=== PATIENT | male | born 1995 | race Hispanic/Latino ===

== ENCOUNTER 2025-08-08 01:07 | Emergency (ER) | payer OTHER ==
[2025-08-08] MEDS ORDERED: NA CHLORIDE 0.9% 1,000 ML ONE (01:45)
[2025-08-08] MEDS ORDERED: ONDANSETRON 4 MG/2 ML VIAL ONE (01:45)
[2025-08-08] MEDS ORDERED: HYDROMORPHONE HCL 0.5 MG/0.5 ML INJ ONE ×2 (01:45→03:38)
[2025-08-08 02:20] LABS: Sqamous Epithelial <5 /HPF (None Seen); Urine Culture Reflex Order NOT NEEDED; Urine Microscopic Reflex YN ORDER UMIC
[2025-08-08 02:36] LABS: Absolute Lymphocytes (CBC) 1.5 K/uL (0.7-4.9); Hematocrit 45.5 % (39.6-49.0); Hemoglobin 15.5 g/dL (13.6-17.9); MCH 29.9 pg (27.0-35.0); MCHC 34.1 g/dL (32.0-36.0); MCV 87.7 fL (80-100); MPV 7.2 fL (7.6-11.3); Nucleated RBC Absolute Count 0.0 (0-0); Nucleated Red Blood Cells % 0.1 % (0-0); RBC Red Blood Cell Count 5.20 M/uL (4.33-5.43); White Blood Count 11.50 thou/uL (4.3-10.9)
[2025-08-08 02:39] LABS: ALT/SGPT 59.0 U/L (16-61); AST/SGOT 39.0 U/L (15-37); Albumin 3.7 g/dL (3.4-5.0); Albumin/Globulin Ratio 0.9 (1.1-1.8); Alkaline Phosphatase 118.0 U/L (45-117); Anion Gap 10.0 mEq/L (5.0-15.0); BUN Blood Urea Nitrogen 16.0 mg/dL (7-18); Globulin 4.3 g/dL (2.3-3.5); Glucose Level 133.0 mg/dL (74-106); Lipase 39.0 U/L (13-75); Potassium 4.0 mEq/L (3.5-5.1)
--- NOTE | 2025-08-08 04:33 | RAD REPORT ---
Procedure description: CT ABDOMEN PELVIS WITH IV CONTRAST CLINICAL INDICATION: ABD PAIN TECHNIQUE: Axial imaging obtained through the abdomen and pelvis. Sagittal and coronal reconstruction s obtained. CONTRAST: Nonionic IV contrast. See hospital information system for dose COMPARISON: Gallbladder ultrasound same date FINDINGS: CT abdomen/pelvis: The lung bases are clear consolidation. No pleural or pericardial effusions and th e heart size is normal. The liver is fatty infiltrated. The gallbladder, bile ducts, portal vein, pancreas, spleen, adrenal g lands and left kidney are normal. The right kidney demonstrates surrounding inflammation. There is slight dilatation of the right renal collecting system.. The ureter is not distended. There is a small calculus in the bladder measuring approximately 2 mm. The aorta is normal size and appearance. The appendix is normal. No bowel distention or inflammation. No constipation. The prostate gland is not significantly enlarged. No free fluid or free air. IMPRESSION: 1: 2 mm calculus in the bladder. This is near the right ureterovesical junction. 2: Mild right-sided renal collecting system prominence without significant hydronephrosis. 3: Inflammatory stranding around the right kidney may be related to obstruction but any pyelonephriti s is not excluded. 4: Fatty infiltration of the liver. RADIATION DOSE REDUCTION: This exam was performed according to our departmental dose-optimization pro gram which includes automated exposure control, adjustment of the mA and/or kV according to patient size and/or use of iterative reconstruction technique. Electronically signed by: Elijah Wyman MD 08/08/2025 03:45 AM CDT Due to temporary technical issues with the PACS/Obvious reporting system, reports are being jonathan d by the in-house radiologist without review as a courtesy to ensure prompt reporting the interpreting radiologist is fully responsible for the content of the report. Transcribed Date/Time: 08/08/2025 4:32 AM
[2025-08-08] MEDS ORDERED: KETOROLAC 30 MG/ML INJ ONE (04:46)
[2025-08-08] MEDS ORDERED: MORPHINE 4 MG/ML SYR ONE (04:47)
--- NOTE | 2025-08-08 05:04 | ER ---
Nurse's Notes [facility] Name: Murphy Julian Age: 29 yrs Sex: Male : 1995 Arrival Date: 08/08/2025 Time: 01:07 Bed 15 Private MD: Diagnosis: Calculus of ureter Presentation: 08/08 01:23 Chief complaint: Patient states: ABD PAIN, N/V STARTED AROUND 2230. VOMITED AT LEAST jj7 10X. Coronavirus screen: At this time, the client does not indicate any symptoms associated with coronavirus-19. Ebola Screen: No symptoms or risks identified at this time. Initial Sepsis Screen: Does the patient meet any 2 criteria? No. Patient's initial sepsis screen is negative. Does the patient have a suspected source of infection? No. Patient's initial sepsis screen is negative. Risk Assessment: Do you want to hurt yourself or someone else? Patient reports no desire to harm self or others. Onset of symptoms was August 07, 2025 at 22:30. 01:23 Method Of Arrival: Ambulatory [facility] 01:23 Acuity: PATITO 3 jj7 Triage Assessment: 01:23 General: Appears in no apparent distress. uncomfortable, Behavior is calm, cooperative, jj7 appropriate for age. Pain: Complains of pain in right upper quadrant and right lower quadrant. Pain: Pain currently is 9 out of 10 on a pain scale. GI: Reports nausea, vomiting. Historical: - Allergies: 01:30 No Known Allergies; jj7 - PMHx: 01:30 None; jj7 - PSHx: 01:30 None; jj7 - Immunization history:: Adult Immunizations not up to date. - Infectious Disease History:: Denies. - Social history:: Smoking status: Patient denies any tobacco usage or history of. Patient/guardian denies using alcohol, street drugs, IV drugs. Screenin:05 [facility] ED Fall Risk Assessment (Adult) History of falling in the last 3 months, vc1 including since admission No falls in past 3 months (0 pts) Confusion or Disorientation No (0 pts) Intoxicated or Sedated No (0 pts) Impaired Gait No (0 pts) Mobility Assist Device Used No (0 pt) Altered Elimination Yes (1 pt) Score/Fall Risk Level 0 - 2 = Low Risk Oriented to surroundings, Maintained a safe environment, Educated pt \T\ family on fall prevention, incl call for assistance when getting out of bed, Assessed \T\ reinforced patient's understanding of fall precautions, Hourly rounding (assess needs \T\ fall precautionary measures) done. Abuse screen: Denies threats or abuse. Nutritional screening: No deficits noted. Tuberculosis screening: No symptoms or risk factors identified. Assessment: 01:40 General: Appears in no apparent distress. uncomfortable, Behavior is calm, cooperative, cc6 appropriate for age. Pain: Complains of pain in abdomen Pain does not radiate. Pain currently is 9 out of 10 on a pain scale. Quality of pain is described as sharp. Neuro: Level of Consciousness is awake, alert, obeys commands, Oriented to person, place, time, situation. Cardiovascular: Patient's skin is warm and dry. Respiratory: Airway is patent Respiratory effort is even, unlabored, Respiratory pattern is regular, symmetrical. GI: Bowel sounds present X 4 quads. Abd is soft X 4 quads Abdomen is tender to palpation X 4 quads. : No signs and/or symptoms were reported regarding the genitourinary system. EENT: No signs and/or symptoms were reported regarding the EENT system. Derm: No signs and/or symptoms reported regarding the dermatologic system. Musculoskeletal: Circulation, motion, and sensation intact. Range of motion: intact in all extremities. 02:53 Reassessment: Patient and/or family updated on plan of care and expected duration. Pain cc6 level reassessed. Patient is alert, oriented x 3, equal unlabored respirations, skin warm/dry/pink. 04:03 Reassessment: Patient appears in no apparent distress at this time. Patient and/or cc6 family updated on plan of care and expected duration. Pain level reassessed. Patient states symptoms have improved. Vital Signs: 01:23 BP 162 / 88; Pulse 86; Resp 20; Temp 98.2; Pulse Ox 100% ; Weight 149.69 kg; Height 5 jj7 ft. 7 in. ; Pain 9/10; 02:53 BP 147 / 89; Pulse 85; Resp 18; Pulse Ox 98% on R/A; cc6 04:03 BP 160 / 91; Pulse 96; Resp 16; Pulse Ox 96% ; cc6 05:28 BP 129 / 85; Pulse 88; Resp 18; Pulse Ox 95% on R/A; cc6 01:23 Body Mass Index 51.68 (149.69 kg, 170.18 cm) jj7 01:23 Pain Scale: Adult [facility] ED Course: 01:09 Patient arrived in ED. mr 01:23 Arm band placed on right wrist. jj7 01:30 Triage completed. jj7 01:35 Jose Francisco Quiros DO is Attending Physician. tt7 01:42 Jeanne Waterman, FERNY is Primary Nurse. cc6 01:50 Inserted saline lock: 20 gauge in right antecubital area, using aseptic technique. vc1 Blood collected. Flushed with 10 mL NS. 02:05 Patient has correct armband on for positive identification. Bed in low position. Call vc1 light in reach. Provided Education on: Plan of care. Pulse ox on. NIBP on. 02:54 US Abdomen Limited In Process Unspecified. EDMS 03:15 CT Abd/Pelvis - IV Contrast Only In Process Unspecified. EDMS 05:29 No provider procedures requiring assistance completed. IV discontinued, intact, cc6 bleeding controlled, No redness/swelling at site. Pressure dressing applied. Administered Medications: 01:58 Drug: HYDROmorphone IVP 0.5 mg IVP once Route: IVP; Site: right antecubital; cc6 05:23 Follow up: Response: No adverse reaction; Pain is decreased; RASS: Alert and Calm (0) cc6 01:59 Drug: Ondansetron IVP 4 mg IVP once; over 2 minutes Route: IVP; Site: right antecubital;cc6 05:24 Follow up: Response: No adverse reaction; Nausea is decreased cc6 01:59 Drug: NS 0.9% IV 1000 ml IV at 1 bolus Per protocol; to be given as a bolus over 60 cc6 minutes Route: IV; Rate: 1 bolus; Site: right antecubital; 05:23 Follow up: Response: No adverse reaction; IV Status: Completed infusion; IV Intake: cc6 1000ml 03:53 Drug: HYDROmorphone IVP 0.5 mg IVP once Route: IVP; Site: right antecubital; vc1 04:57 Follow up: Response: No adverse reaction; Pain is unchanged, physician notified cc6 04:54 Drug: Ketorolac IVP 15 mg IVP once Route: IVP; Site: right antecubital; cc6 05:19 Follow up: Response: No adverse reaction; Pain is decreased cc6 04:54 Drug: morphine IVP or IV 4 mg IVP once over 4 mins Route: IVP; Infused Over: 4 mins; cc6 Site: right antecubital; 05:19 Follow up: Response: No adverse reaction; Pain is decreased cc6 Medication: 02:06 VIS not applicable for this client. vc1 Intake: 05:23 IV: 1000ml; Total: 1000ml. cc6 Outcome: 05:03 Discharge ordered by MD. tt7 05:30 Discharged to home ambulatory, cc6 05:30 Condition: stable 05:30 Discharge instructions given to patient, Instructed on discharge instructions, follow up and referral plans. medication usage, Demonstrated understanding of instructions, follow-up care, medications, Prescriptions given X 1, 05:30 Patient left the ED. cc6 Signatures: Dispatcher [employer] EDKS Dasia Qiu, Reg Reg mr Adriana Scales RN RN vc1 Nisha Thorne RN RN jj7 Jeanne Waterman RN RN cc6 Jose Francisco Quiros DO DO tt7
--- NOTE | 2025-08-08 05:04 | EDPHYS ---
Physician Documentation [facility] Name: Murphy Julian Age: 29 yrs Sex: Male : 1995 Arrival Date: 08/08/2025 Time: 01:07 Bed 15 Private MD: ED Physician Jose Francisco Quiros HPI: 08/08 02:24 This 29 yrs old Male presents to ER via Ambulatory with complaints of tt7 Abdominal Pain, Nausea/Vomiting. 02:24 Symptoms started about 5 hours ago, the patient reports sharp constant right upper tt7 abdominal pain with associated nausea/vomiting. He reports approximately 10 episodes of nonbloody nonbilious vomiting. Unable to tolerate oral intake. He rates the pain 8/10 in severity. No associated fever. No daily alcohol use or illicit drug use. Historical: - Allergies: 01:30 No Known Allergies; jj7 - PMHx: 01:30 None; jj7 - PSHx: 01:30 None; jj7 - Immunization history:: Adult Immunizations not up to date. - Infectious Disease History:: Denies. - Social history:: Smoking status: Patient denies any tobacco usage or history of. Patient/guardian denies using alcohol, street drugs, IV drugs. ROS: 04:02 Constitutional: negative for fever. Cardiovascular: negative for chest pain. tt7 Respiratory: negative for shortness of breath. MS/Extremity: negative for injury and deformity. Skin: negative for rash. Neuro: negative for focal weakness. 04:02 Abdomen/GI: Positive for abdominal pain, nausea and vomiting, Exam: 04:02 Constitutional: vital signs reviewed, uncomfortable appearing. Head/Face: tt7 normocephalic, atraumatic. Eyes: no conjunctival injection, anicteric sclerae. ENT: mucus membranes moist. Neck: trachea midline, no JVD, no meningismus. Chest/axilla: normal chest wall appearance and motion, nontender, no crepitus. Cardiovascular: regular rate and rhythm, no murmurs, no rubs, no lower extremity edema. Respiratory: normal respiratory effort, no accessory muscle use, lungs CTAB. Abdomen/GI: soft, nondistended, moderate right upper quadrant tenderness to palpation, no guarding or rebound, negative Poon's sign, no McBurney point tenderness. Back: normal ROM. Skin: warm, dry, intact, normal turgor, normal color, no rash. MS/ Extremity: normal ROM of extremities, no gross deformities. Neuro: alert and oriented with appropriate mental status, normal speech, follows commands, no focal neurologic deficits. Psych: appropriate mood and affect. Vital Signs: 01:23 BP 162 / 88; Pulse 86; Resp 20; Temp 98.2; Pulse Ox 100% ; Weight 149.69 kg; Height 5 jj7 ft. 7 in. ; Pain 9/10; 02:53 BP 147 / 89; Pulse 85; Resp 18; Pulse Ox 98% on R/A; cc6 04:03 BP 160 / 91; Pulse 96; Resp 16; Pulse Ox 96% ; cc6 05:28 BP 129 / 85; Pulse 88; Resp 18; Pulse Ox 95% on R/A; cc6 01:23 Body Mass Index 51.68 (149.69 kg, 170.18 cm) [facility] 01:23 Pain Scale: Adult [facility] MDM: 01:37 Medical Screening Exam initiated tt7 04:03 Differential diagnosis: Nonspecific abd pain, gastritis, cholecystitis, pancreatitis, tt7 appendicitis, diverticulitis, viral gastroenteritis, gastroenteritis, Ureterolithiasis. Data reviewed: vital signs, nurses notes, lab test result(s), radiologic studies. ED course: 29-year-old male with right sided abdominal pain, vital signs are stable, he is uncomfortable appearing with right upper quadrant tenderness on exam, standard abdominal pain workup ordered with CT imaging of the abdomen/pelvis to assess for potential ureterolithiasis and ultrasound of the right upper quadrant to assess for cholecystitis, patient given parenteral opioid and antiemetic, IV fluid bolus ordered. 04:44 Counseling: I had a detailed discussion with the patient and/or guardian regarding the tt7 historical points, exam findings, and any diagnostic results supporting the discharge/admit diagnosis, lab results, radiology results, the need for outpatient follow up, to return to the emergency department if symptoms worsen or persist or if there are any questions or concerns that arise at home. ED course: Workup demonstrates a 2 mm calculus within the bladder near the ureterovesicular junction, this likely represents a cause of patient's symptoms, appears he likely passed a stone during his visit here in the emergency department, there is some stranding around the right kidney, given the patient's lack of fever and urinalysis without evidence of infection this is likely inflammatory stranding from the obstruction and does not represent infection, I reassessed the patient and pain is improving with parenteral opioids, still pending results of right upper quadrant ultrasound to assess for cholecystitis but feel that right sided ureterolithiasis explains the patient's presentation well. 05:05 ED course: Ultrasound negative for acute gallbladder disease, after completion of the tt7 patient's emergency department evaluation, I do not suspect a life-threatening or disabling process. Patient is medically stable and not in need of emergent medical intervention. I had a detailed discussion with the patient regarding the historical points, exam findings, emergency department evaluation, diagnostic results, and the discharge diagnosis. I instructed the patient on outpatient management of their condition. I discussed the need for outpatient follow-up with a primary care physician. I informed the patient on return precautions, including the need to return to the ED if symptoms do not improve, worsen, or if there are any questions or concerns that arise at home. The patient was discharged in stable condition. 08/08 01:39 Order name: CBC with Diff; Complete Time: 02:43 tt7 08/08 01:39 Order name: CMP; Complete Time: 02:43 tt7 08/08 01:39 Order name: Lipase; Complete Time: 02:43 tt7 08/08 01:39 Order name: UA Rfx Da Cult if indicated; Complete Time: 02:30 tt7 08/08 01:39 Order name: US Abdomen Limited tt7 08/08 02:31 Order name: CT Abd/Pelvis - IV Contrast Only; Complete Time: 04:41 tt7 08/08 01:39 Order name: IV Saline Lock; Complete Time: 02:05 tt7 08/08 01:39 Order name: Labs collected and sent; Complete Time: 02:05 tt7 Administered Medications: 01:58 Drug: HYDROmorphone IVP 0.5 mg IVP once Route: IVP; Site: right antecubital; cc6 05:23 Follow up: Response: No adverse reaction; Pain is decreased; RASS: Alert and Calm (0) cc6 01:59 Drug: Ondansetron IVP 4 mg IVP once; over 2 minutes Route: IVP; Site: right antecubital;cc6 05:24 Follow up: Response: No adverse reaction; Nausea is decreased cc6 01:59 Drug: NS 0.9% IV 1000 ml IV at 1 bolus Per protocol; to be given as a bolus over 60 cc6 minutes Route: IV; Rate: 1 bolus; Site: right antecubital; 05:23 Follow up: Response: No adverse reaction; IV Status: Completed infusion; IV Intake: cc6 1000ml 03:53 Drug: HYDROmorphone IVP 0.5 mg IVP once Route: IVP; Site: right antecubital; vc1 04:57 Follow up: Response: No adverse reaction; Pain is unchanged, physician notified cc6 04:54 Drug: Ketorolac IVP 15 mg IVP once Route: IVP; Site: right antecubital; cc6 05:19 Follow up: Response: No adverse reaction; Pain is decreased cc6 04:54 Drug: morphine IVP or IV 4 mg IVP once over 4 mins Route: IVP; Infused Over: 4 mins; cc6 Site: right antecubital; 05:19 Follow up: Response: No adverse reaction; Pain is decreased cc6 Disposition: 05:05 Co-signature as Attending Physician, Jose Francisco Quiros DO. tt7 Disposition Summary: 08/08/25 05:03 Discharge Ordered Notes: Location: Home tt7 Problem: new tt7 Symptoms: have improved tt7 Condition: Stable tt7 Diagnosis - Calculus of ureter tt7 Followup: tt7 - With: Emergency Department - When: As needed - Reason: Followup: tt7 - With: Private Physician - When: 1 - 2 days - Reason: Recheck today's complaints, Re-evaluation by your physician Discharge Instructions: - Discharge Summary Sheet tt7 - Kidney Stones, [id number] tt7 Forms: - Work release form cc6 - Medication Reconciliation Form tt7 - Antibiotic Education tt7 - Prescription Opioid Use tt7 - Patient Portal Instructions tt7 - Leadership Thank You Letter tt7 Prescriptions: - Ibuprofen 600 mg Oral tablet - take 1 tablet ORAL route every 8 hours As needed take with food; 30 tablet; tt7 Refills: 0, Product Selection Permitted Signatures: Dispatcher [employer] Adriana Vinson RN RN vc1 Nisha Thorne RN RN jj7 Jeanne Waterman RN RN cc6 Jose Francisco Quiros DO DO tt7 Corrections: (The following items were deleted from the chart) 01:39 01:39 CBC+H.LAB.BRZ ordered. EDMS EDMS 01:39 01:39 COMPREHENSIVE METABOLIC PANEL+C.LAB.BRZ ordered. EDMS EDMS 01:39 01:39 LIPASE+C.LAB.BRZ ordered. EDMS EDMS 01:39 01:39 UA Rfx Da Cult if indicated+U.LAB.BRZ ordered. EDMS EDMS 02:26 02:24 Symptoms started about 5 hours ago, the patient reports sharp constant right tt7 upper abdominal pain with associated nausea/vomiting. He reports approximately 10 episodes of nonbloody nonbilious vomiting. Unable to tolerate oral intake. No associated fever. No daily alcohol use or illicit drug use. tt7
[2025-08-08 05:34] VITALS: TEMP 98.2
[2025-08-08 05:40] VITALS: BP 129/85; O2SAT 95
--- NOTE | 2025-08-08 08:29 | RAD REPORT ---
Procedure description: US ABDOMEN LIMITED Clinical history: ABD PAIN Comparison: None Ultrasound evaluation of the right upper quadrant abdomen. Findings: The gallbladder is without evidence of wall thickening or definitive gallstone. There may be a small polyp. Common bile duct measures approximately 4 mm. Other abdominal structures are not evaluated on this exam. No ascites is demonstrated within the right upper quadrant. Examination is limited by patient habitus. IMPRESSION: 1: No evidence of acute gallbladder disease. Electronically signed by: Elijah Wyman MD 08/08/2025 03:42 AM CDT Due to temporary technical issues with the PACS/[employer] reporting system, reports are being jonathan d by the in-house radiologist without review as a courtesy to ensure prompt reporting the interpreting radiologist is fully responsible for the content of the report. Transcribed Date/Time: 08/08/2025 8:29 AM
== END 2025-08-08 05:30 | disposition home or self-care (01) ==
LOC: ER 01:07
DX: N20.1 Calculus of ureter (principal)
CPT/HCPCS: 96361; 85025; 81001; 36415; 83690; 80053; 74177; 76705; 96375; 96374; 99284; Q9967; J1885; J1171 ×2; J2405; J7030